=== PATIENT | male | born 1960 | race Caucasian/White ===

== ENCOUNTER 2019-03-27 16:03 | Inpatient (IN) ==
[2019-03-27] MEDS ORDERED: Ondansetron 4 MG/2 ML VIAL IVP PRN (18:20)
[2019-03-27] MEDS ORDERED: Piperacillin/Tazobactam 3.375 GM in Water for inj. (sterile) 20 ML IVP ONE (18:34)
[2019-03-27] MEDS ORDERED: *HR* Metoprolol 5 MG/5 ML VIAL IVP PRN (18:36)
[2019-03-27] MEDS ORDERED: Vancomycin 0 MG in 0.9 % Sodium Chloride 250 ML IVPB SCH (19:00)
[2019-03-27 19:37] LABS: Basophils % 0.2 %; Hematocrit 29.4 % (37.5-50.1); Immature Granulocytes % 0.4 % (0-4); Lymphocytes # 0.3 K/mcL (0.6-4.6); Mean Corpuscular Hemoglobin 27.9 pg (28.0-33.3); Mean Corpuscular Volume 82.1 fL (83.0-100.0); Mean Platelet Volume 10.4 fL (9.4-12.4); Monocytes # 0.6 K/mcL (0.0-1.3); Monocytes % 4.8 %; Neutrophils # 11.8 K/mcL (1.6-8.9); Platelet Count 279 K/mcL (140-400); Red Blood Count 3.58 M/mcL (4.19-5.50); Red Cell Distribution Width 14.8 % (11.5-14.5); Segmented Neutrophils % 92.6 %; White Blood Count 12.7 K/mcL (4.3-11.1)
[2019-03-27 19:42] LABS: INR 1.1
[2019-03-27 19:58] LABS: BUN/Creatinine Ratio 36 (6-26); Blood Urea Nitrogen 86 mg/dL (6-20); Calcium 7.9 mg/dL (8.6-10.3); Carbon Dioxide 19 mEq/L (23-29); Chloride 97 mEq/L (98-107); Glucose 220 mg/dL (70-105); Magnesium 2.6 mg/dL (1.6-2.6); Osmolality,Calculated 291 (280-300); Phosphorous 5.7 mg/dL (2.7-4.5); Potassium 6.3 mEq/L (3.5-5.1); Sodium 124 mEq/L (136-145); Troponin I < 0.03 ng/mL (< 0.04); eGFR For African Americans 34 (> 60); eGFR For Non-African Americans 28 (> 60)
[2019-03-27 19:59] LABS: Alanine Aminotransferase 21 Units/L (7-52); Albumin 3.5 g/dL (3.5-5.7); Albumin/Globulin Ratio 1.1 (1.1-2.2); Alkaline Phosphatase 102 Units/L (34-104); Aspartate Amino Transferase 36 Units/L (13-39); Bilirubin,Direct 0.1 mg/dL (0.0-0.2); Bilirubin,Indirect 0.2 mg/dL (0.0-1.0); Bilirubin,Total 0.3 mg/dL (0.3-1.0); Globulin 3.1 g/dL (2.4-3.5); Total Protein 6.6 g/dL (6.4-8.9)
[2019-03-27] MEDS ORDERED: Albuterol 2.5 MG/3 ML NEBULIZER IH ONE ×2 (20:26→20:32)
[2019-03-27] MEDS: Ipratropium/Albuterol Neb 3 ML IH SCH (20:26)
[2019-03-27] MEDS ORDERED: *HR* Dextrose 50 % in Water (Syg) 50 ML SYRINGE IVP ONE (20:27)
[2019-03-27] MEDS ORDERED: Insulin Human Regular 10 UNIT in 0.9 % Sodium Chloride 10 ML IV ONE (20:27)
[2019-03-27] MEDS ORDERED: Calcium Gluconate 1gm/50mL 1 GM/50 ML BAG IVPB ONE (20:36)
[2019-03-27 20:45] LABS: ABG Base Excess -8 mEq/L (-2 to 3); ABG HCO3 20 mEq/L (21-27); ABG Oxygen Saturation 90 % (95-98); ABG PCO2 50 mmHg (35-45); ABG PH 7.21 pH Units (7.32-7.45); ABG PO2 72 mmHg (85-104); ABG TCO2 21 mEq/L (20-26); Blood Gas VT 600 cc
[2019-03-27] MEDS ORDERED: 0.9 % Sodium Chloride Mini Bag 100 ML ONE (21:05)
[2019-03-27] MEDS: Piperacillin/Tazobactam 3.375 GM in 0.9 % Sodium Chloride Mini Bag 100 ML IVPB SCH (21:07)
[2019-03-27 21:12] LABS: Ethanol < 10 mg/dL (Less than 10)
[2019-03-27 22:13] LABS: Bilirubin,Urine Small (Negative); Blood,Urine Negative (Negative); Clarity,Urine Clear (Clear); Color,Urine Dark Yellow (Yellow); Glucose,Urine (UA) Normal (Normal); Ketones,Urine Negative (Negative); Leukocyte Esterase,Urine Negative (Negative); Nitrite,Urine Negative (Negative); Protein,Urine Trace mg/dL (Neg-Trace); Specific Gravity,Urine 1.021 (1.010-1.025); Urobilinogen,Urine Normal (Normal)
[2019-03-27 22:24] LABS: Amphetamine Screen,Urine Negative ng/mL (Cutoff=1000); Barbiturate Screen,Urine Negative ng/mL (Cutoff=200); Benzodiazepines Screen,Urine Negative ng/mL (Cutoff=200); Cannabinoid Screen,Urine Negative ng/mL (Cutoff = 50); Cocaine Screen,Urine Negative ng/mL (Cutoff= 300); Opiate Screen,Urine Positive ng/mL (Cutoff=300); Phencyclidine Screen,Urine Negative ng/mL (Cutoff=25)
[2019-03-27] MEDS: 0.9 % Sodium Chloride 1,000 ML IV SCH (22:41)
[2019-03-27 23:03] LABS: Creatine Kinase 1056 Units/L (30-223)
[2019-03-27] MEDS: Insulin LISPRO 300 UNITS/3 ML VIAL SQ SCH (23:04)
[2019-03-27] MEDS: MethylPREDNISolone 40 MG/ML VIAL IVP SCH (23:04)
[2019-03-27] MEDS: *HR* Heparin 5,000 UNIT/ML VIAL SQ SCH (23:04)
[2019-03-27 23:26] LABS: Adenovirus Not Detected (Not Detect); Bordetella Pertussis Not Detected (Not Detect); Chlamydophila pneumoniae Not Detected (Not Detect); Coronavirus 229E Not Detected (Not Detect); Coronavirus HKU1 Not Detected (Not Detect); Coronavirus NL63 Not Detected (Not Detect); Coronavirus OC43 Not Detected (Not Detect); Human Metapneumovirus Not Detected (Not Detect); Human Rhinovirus/Enterovirus Not Detected (Not Detect); Influenza A Subtype 2009 H1 Not Detected (Not Detect); Influenza A Untypeable Not Detected (Not Detect); Influenza B Not Detected (Not Detect); Mycoplasma pneumoniae Not Detected (Not Detect); Parainfluenza Virus 1 Not Detected (Not Detect); Parainfluenza Virus 2 Not Detected (Not Detect); Parainfluenza Virus 3 Not Detected (Not Detect); Parainfluenza Virus 4 Not Detected (Not Detect); Respiratory Syncytial Virus Not Detected (Not Detect)
[2019-03-28] MEDS: Ipratropium/Albuterol Neb 3 ML IH SCH ×7 (00:01→23:39)
[2019-03-28] MEDS ORDERED: Insulin DETEMIR 100 UNIT/ML X5UNITS SQ ONE (00:25)
[2019-03-28] MEDS ORDERED: Insulin LISPRO 300 UNITS/3 ML VIAL SQ ONE (00:25)
[2019-03-28 00:56] LABS: Calcium 7.8 mg/dL (8.6-10.3); Potassium 6.4 mEq/L (3.5-5.1)
[2019-03-28] MEDS: 0.9 % Sodium Chloride 1,000 ML IV SCH (03:47)
[2019-03-28] MEDS: Piperacillin/Tazobactam 3.375 GM in 0.9 % Sodium Chloride Mini Bag 100 ML IVPB SCH ×3 (04:07→20:10)
[2019-03-28 04:34] LABS: ABG Base Excess -8 mEq/L (-2 to 3); ABG HCO3 21 mEq/L (21-27); ABG Oxygen Saturation 95 % (95-98); ABG PCO2 55 mmHg (35-45); ABG PH 7.18 pH Units (7.32-7.45); ABG PO2 93 mmHg (85-104); ABG TCO2 22 mEq/L (20-26); Blood Gas VT 550 cc
[2019-03-28 05:15] LABS: Basophils % 0.1 %; Hematocrit 27.8 % (37.5-50.1); Immature Granulocytes % 0.3 % (0-4); Lymphocytes # 0.4 K/mcL (0.6-4.6); Lymphocytes % 2.8 %; Mean Corpuscular HGB Conc 32.4 g/dL (31.6-35.5); Mean Corpuscular Volume 86.6 fL (83.0-100.0); Mean Platelet Volume 10.5 fL (9.4-12.4); Monocytes # 0.5 K/mcL (0.0-1.3); Monocytes % 3.3 %; Platelet Count 235 K/mcL (140-400); Red Blood Count 3.21 M/mcL (4.19-5.50); Red Cell Distribution Width 14.9 % (11.5-14.5); Segmented Neutrophils % 93.5 %
[2019-03-28] MEDS: Insulin LISPRO 300 UNITS/3 ML VIAL SQ SCH ×4 (05:21→23:14)
[2019-03-28 05:33] LABS: Calcium 7.8 mg/dL (8.6-10.3); Potassium 6.6 mEq/L (3.5-5.1)
[2019-03-28] MEDS ORDERED: Insulin Human Regular 10 UNIT in 0.9 % Sodium Chloride 10 ML IV ONE ×3 (05:38→16:40)
[2019-03-28] MEDS ORDERED: *HR* Dextrose 50 % in Water (Syg) 50 ML SYRINGE IVP ONE ×3 (05:38→16:41)
[2019-03-28 05:39] LABS: Platelet Estimate Normal (Normal)
[2019-03-28 05:41] LABS: ABG Base Excess -7 mEq/L (-2 to 3); ABG HCO3 21 mEq/L (21-27); ABG Oxygen Saturation 94 % (95-98); ABG PCO2 52 mmHg (35-45); ABG PH 7.21 pH Units (7.32-7.45); ABG PO2 86 mmHg (85-104); ABG TCO2 22 mEq/L (20-26); Blood Gas VT 700 cc
[2019-03-28] MEDS: Naloxone 0.4 MG/ML INJ IVP PRN ×2 (05:48→05:55)
[2019-03-28] MEDS ORDERED: Dexmedetomidine HCl 400 MCG/100 ML MLS IVC ONE (06:13)
[2019-03-28] MEDS: Dexmedetomidine HCl 400 MCG/100 ML MLS IVC SCH ×5 (06:27→21:30)
[2019-03-28] MEDS ORDERED: Perflutren Lipid Microsphere 1.3 ML in 0.9 % Sodium Chloride 8.7 ML IVP ONE (08:08)
[2019-03-28] MEDS ORDERED: levoFLOXacin 750 MG/150 ML 750 MG/150 ML BAG IVPB ONE (09:00)
[2019-03-28 10:48] LABS: Calcium 7.6 mg/dL (8.6-10.3); Potassium 6.6 mEq/L (3.5-5.1)
[2019-03-28] MEDS: *HR* Heparin 5,000 UNIT/ML VIAL SQ SCH ×3 (11:10→23:14)
[2019-03-28] MEDS: MethylPREDNISolone 40 MG/ML VIAL IVP SCH (11:10)
[2019-03-28] MEDS ORDERED: Dextrose Gel 15 GM/37.5 ML TUBE PO PRN ×2 (11:11)
[2019-03-28] MEDS ORDERED: D5% in Water 1,000 ML IVC PRN (11:11)
[2019-03-28] MEDS ORDERED: *HR* Dextrose 50 % in Water (Syg) 50 ML SYRINGE IVP PRN (11:11)
[2019-03-28 11:17] LABS: ABG Base Excess -10 mEq/L (-2 to 3); ABG HCO3 17 mEq/L (21-27); ABG Oxygen Saturation 72 % (95-98); ABG PCO2 40 mmHg (35-45); ABG PH 7.24 pH Units (7.32-7.45); ABG PO2 45 mmHg (85-104); ABG TCO2 18 mEq/L (20-26); Blood Gas Modality AVAPS; Blood Gas VT 700 cc
[2019-03-28] MEDS: *HR* LORazepam 2 MG/ML VIAL IVP PRN ×2 (11:38→21:30)
[2019-03-28] MEDS ORDERED: 0.9 % Sodium Chloride 250 ML IVC PRN (12:22)
[2019-03-28] MEDS ORDERED: *HR* Heparin 10,000 UNIT/10 ML VIAL IV PRN (12:22)
[2019-03-28] MEDS ORDERED: *HR* Heparin 5,000 UNIT/ML VIAL ONE (12:26)
[2019-03-28] MEDS ORDERED: 0.9 % Sodium Chloride 1,000 ML PRIME SCH ×2 (12:30→17:30)
[2019-03-28 13:07] LABS: Hepatitis B Surface Antibody 17.15 mIU/mL
[2019-03-28 13:17] LABS: Hepatitis B Surface Antigen Nonreactive (Nonreactive)
[2019-03-28 13:18] LABS: VBG HCO3 18 mEq/L (21-27); VBG PCO2 47 mmHg (41-51); VBG PH 7.19 pH Units (7.32-7.42); VBG PO2 119 mmHg (25-50)
[2019-03-28 13:45] LABS: Hepatitis B Core IgM Nonreactive (Nonreactive)
[2019-03-28 13:49] LABS: Calcium 7.5 mg/dL (8.6-10.3); Potassium 6.7 mEq/L (3.5-5.1)
[2019-03-28] MEDS: Insulin DETEMIR 100 UNIT/ML X5UNITS SQ SCH ×2 (14:19→20:09)
[2019-03-28] MEDS: Norepinephrine 4 MG in 0.9 % Sodium Chloride 250 ML IVC SCH (16:45)
[2019-03-28] MEDS: Hydrocortisone Sodium Succ 100 MG/2 ML VIAL IVP SCH ×2 (17:01→23:14)
[2019-03-28] MEDS: Calcium Gluconate 1gm/50mL 1 GM/50 ML BAG IVPB SCH ×2 (17:02→17:46)
[2019-03-28] MEDS ORDERED: *HR* Alteplase (Cathflo) 2 MG VIAL IVP PRN (17:20)
[2019-03-28] MEDS ORDERED: 0.9 % Sodium Chloride 1,000 ML PRIME ONE ×2 (17:20)
[2019-03-28] MEDS ORDERED: *HR* Heparin 5,000 UNIT/ML VIAL IVP PRN (17:20)
[2019-03-28] MEDS: PrismaSATE BGK 4/2.5 5,000 ML CRRT SCH ×2 (21:29)
[2019-03-29] MEDS: Dexmedetomidine HCl 400 MCG/100 ML MLS IVC SCH ×6 (00:09→22:43)
[2019-03-29] MEDS: PrismaSATE BGK 4/2.5 5,000 ML CRRT SCH ×4 (02:09→05:37)
[2019-03-29] MEDS: Ipratropium/Albuterol Neb 3 ML IH SCH ×5 (03:28→19:55)
[2019-03-29 03:34] LABS: Basophils % 0.1 %; Hematocrit 26.2 % (37.5-50.1); Hemoglobin 8.9 g/dL (12.9-16.9); Immature Granulocytes % 1.7 % (0-4); Lymphocytes # 0.6 K/mcL (0.6-4.6); Lymphocytes % 5.5 %; Mean Corpuscular Hemoglobin 28.2 pg (28.0-33.3); Mean Corpuscular Volume 82.9 fL (83.0-100.0); Mean Platelet Volume 9.8 fL (9.4-12.4); Monocytes # 0.7 K/mcL (0.0-1.3); Monocytes % 6.1 %; Neutrophils # 9.3 K/mcL (1.6-8.9); Platelet Count 222 K/mcL (140-400); Red Blood Count 3.16 M/mcL (4.19-5.50); Red Cell Distribution Width 14.7 % (11.5-14.5); Segmented Neutrophils % 86.6 %; White Blood Count 10.7 K/mcL (4.3-11.1)
[2019-03-29 03:53] LABS: BUN/Creatinine Ratio 61 (6-26); Blood Urea Nitrogen 68 mg/dL (6-20); Calcium 7.7 mg/dL (8.6-10.3); Carbon Dioxide 22 mEq/L (23-29); Chloride 104 mEq/L (98-107); Glucose 220 mg/dL (70-105); Osmolality,Calculated 299 (280-300); Potassium 5.4 mEq/L (3.5-5.1); Sodium 131 mEq/L (136-145); eGFR For African Americans > 60 (> 60); eGFR For Non-African Americans > 60 (> 60)
[2019-03-29] MEDS: Piperacillin/Tazobactam 3.375 GM in 0.9 % Sodium Chloride Mini Bag 100 ML IVPB SCH ×3 (04:00→20:15)
[2019-03-29] MEDS: Insulin LISPRO 300 UNITS/3 ML VIAL SQ SCH ×4 (05:36→23:01)
[2019-03-29] MEDS: Hydrocortisone Sodium Succ 100 MG/2 ML VIAL IVP SCH (05:36)
[2019-03-29 05:54] LABS: ABG Base Excess -2 mEq/L (-2 to 3); ABG HCO3 24 mEq/L (21-27); ABG Oxygen Saturation 99 % (95-98); ABG PCO2 48 mmHg (35-45); ABG PH 7.31 pH Units (7.32-7.45); ABG PO2 140 mmHg (85-104); ABG TCO2 26 mEq/L (20-26); Blood Gas VT 700 cc
[2019-03-29] MEDS: Insulin DETEMIR 100 UNIT/ML X5UNITS SQ SCH ×2 (08:00→20:15)
[2019-03-29] MEDS: *HR* Heparin 5,000 UNIT/ML VIAL SQ SCH ×3 (08:02→23:00)
[2019-03-29 10:49] LABS: BUN/Creatinine Ratio 62 (6-26); Blood Urea Nitrogen 56 mg/dL (6-20); Calcium 7.7 mg/dL (8.6-10.3); Carbon Dioxide 24 mEq/L (23-29); Chloride 106 mEq/L (98-107); Glucose 215 mg/dL (70-105); Osmolality,Calculated 298 (280-300); Potassium 5.2 mEq/L (3.5-5.1); Sodium 133 mEq/L (136-145); eGFR For African Americans > 60 (> 60); eGFR For Non-African Americans > 60 (> 60)
[2019-03-29] MEDS ORDERED: levoFLOXacin 500 MG/100 ML 500 MG/100 ML BAG IVPB SCH (12:00)
[2019-03-29] MEDS ORDERED: *HR* Heparin 10,000 UNIT/10 ML VIAL IV PRN (12:22)
[2019-03-29] MEDS ORDERED: 0.9 % Sodium Chloride 250 ML IVC PRN (12:22)
[2019-03-29] MEDS ORDERED: 0.9 % Sodium Chloride 1,000 ML PRIME SCH (12:30)
[2019-03-29] MEDS: Norepinephrine 4 MG in 0.9 % Sodium Chloride 250 ML IVC SCH (15:36)
[2019-03-29] MEDS ORDERED: Loratadine 10 MG TABLET PO SCH (17:30)
[2019-03-29] MEDS ORDERED: Hydrocortisone Sodium Succ 100 MG/2 ML VIAL IVP SCH (18:00)
[2019-03-29] MEDS: Pregabalin 50 MG CAPSULE PO SCH ×2 (18:00→20:15)
[2019-03-29] MEDS: *HR* LORazepam 2 MG/ML VIAL IVP PRN (19:16)
[2019-03-29] MEDS ORDERED: Haloperidol Lactate 5 MG/ML VIAL IVP ONE (21:13)
[2019-03-29] MEDS ORDERED: Ziprasidone 20 MG CAPSULE PO ONE (23:45)
[2019-03-30] MEDS: Ipratropium/Albuterol Neb 3 ML IH SCH ×7 (00:04→23:40)
[2019-03-30] MEDS ORDERED: Morphine Sulfate ER (12 HR) 15 MG TABLET.ER PO ONE ×3 (02:41→16:20)
[2019-03-30] MEDS: *HR* LORazepam 2 MG/ML VIAL IVP PRN ×2 (03:18→12:22)
[2019-03-30 03:57] LABS: Basophils % 0.3 %; Hematocrit 28.4 % (37.5-50.1); Hemoglobin 9.5 g/dL (12.9-16.9); Immature Granulocytes % 2.9 % (0-4); Lymphocytes # 1.6 K/mcL (0.6-4.6); Lymphocytes % 10.6 %; Mean Corpuscular HGB Conc 33.5 g/dL (31.6-35.5); Mean Corpuscular Hemoglobin 27.9 pg (28.0-33.3); Mean Corpuscular Volume 83.3 fL (83.0-100.0); Mean Platelet Volume 9.8 fL (9.4-12.4); Monocytes % 6.6 %; Neutrophils # 12.3 K/mcL (1.6-8.9); Platelet Count 302 K/mcL (140-400); Red Blood Count 3.41 M/mcL (4.19-5.50); Red Cell Distribution Width 14.7 % (11.5-14.5); Segmented Neutrophils % 79.6 %; White Blood Count 15.5 K/mcL (4.3-11.1)
[2019-03-30] MEDS: Piperacillin/Tazobactam 3.375 GM in 0.9 % Sodium Chloride Mini Bag 100 ML IVPB SCH ×3 (04:06→20:04)
[2019-03-30 04:20] LABS: BUN/Creatinine Ratio 42 (6-26); Blood Urea Nitrogen 32 mg/dL (6-20); Calcium 8.1 mg/dL (8.6-10.3); Carbon Dioxide 25 mEq/L (23-29); Chloride 104 mEq/L (98-107); Glucose 151 mg/dL (70-105); Osmolality,Calculated 296 (280-300); Potassium 3.5 mEq/L (3.5-5.1); Sodium 138 mEq/L (136-145); eGFR For African Americans > 60 (> 60); eGFR For Non-African Americans > 60 (> 60)
[2019-03-30 04:33] LABS: ABG Base Excess 1 mEq/L (-2 to 3); ABG HCO3 25 mEq/L (21-27); ABG Oxygen Saturation 91 % (95-98); ABG PCO2 33 mmHg (35-45); ABG PH 7.48 pH Units (7.32-7.45); ABG PO2 55 mmHg (85-104); ABG TCO2 26 mEq/L (20-26); Blood Gas Modality AVAPS; Blood Gas VT 700 cc
[2019-03-30] MEDS: Insulin LISPRO 300 UNITS/3 ML VIAL SQ SCH ×3 (05:08→17:16)
[2019-03-30] MEDS ORDERED: *HR* LORazepam 1 MG TABLET PO PRN (06:38)
[2019-03-30] MEDS ORDERED: diazePAM 5 MG TABLET PO PRN (06:44)
[2019-03-30] MEDS: *HR* Heparin 5,000 UNIT/ML VIAL SQ SCH ×2 (08:03→16:14)
[2019-03-30] MEDS: predniSONE 20 MG TABLET PO SCH (08:03)
[2019-03-30] MEDS: Pregabalin 50 MG CAPSULE PO SCH ×3 (08:03→20:03)
[2019-03-30] MEDS: Insulin DETEMIR 100 UNIT/ML X5UNITS SQ SCH ×2 (09:21→20:02)
[2019-03-30 09:55] LABS: Mycoplasma pneumoniae IgG 0.48 U/L (<=0.09)
[2019-03-30] MEDS: Morphine Sulfate ER (12 HR) 60 MG TABLET.ER PO SCH ×3 (11:11→19:31)
[2019-03-30] MEDS ORDERED: cloNIDine HCl 0.1 MG TABLET PO ONE (12:50)
[2019-03-30] MEDS ORDERED: Morphine Sulfate ER (12 HR) 15 MG TABLET.ER PO SCH (14:00)
[2019-03-30] MEDS: *HR* LORazepam 1 MG TABLET PO SCH ×3 (14:04→20:03)
[2019-03-30] MEDS: Norepinephrine 4 MG in 0.9 % Sodium Chloride 250 ML IVC SCH (19:17)
[2019-03-30] MEDS: Dexmedetomidine HCl 400 MCG/100 ML MLS IVC SCH ×2 (19:27→20:55)
[2019-03-30] MEDS: Morphine Sulfate ER (12 HR) 30 MG TABLET.ER PO SCH (20:02)
[2019-03-31] MEDS: Dexmedetomidine HCl 400 MCG/100 ML MLS IVC SCH ×2 (00:06→02:40)
[2019-03-31] MEDS: Insulin LISPRO 300 UNITS/3 ML VIAL SQ SCH ×4 (00:07→16:42)
[2019-03-31] MEDS: *HR* Heparin 5,000 UNIT/ML VIAL SQ SCH ×3 (00:08→15:15)
[2019-03-31 03:29] LABS: BUN/Creatinine Ratio 28 (6-26); Blood Urea Nitrogen 17 mg/dL (6-20); Calcium 7.2 mg/dL (8.6-10.3); Carbon Dioxide 25 mEq/L (23-29); Chloride 108 mEq/L (98-107); Glucose 176 mg/dL (70-105); Osmolality,Calculated 292 (280-300); Potassium 3.6 mEq/L (3.5-5.1); Sodium 138 mEq/L (136-145); eGFR For African Americans > 60 (> 60); eGFR For Non-African Americans > 60 (> 60)
[2019-03-31] MEDS: Ipratropium/Albuterol Neb 3 ML IH SCH ×5 (03:29→19:53)
[2019-03-31 03:52] LABS: Basophils % 0.1 %; Eosinophils % 0.3 %; Hemoglobin 8.4 g/dL (12.9-16.9); Immature Granulocytes % 3.9 % (0-4); Lymphocytes # 2.1 K/mcL (0.6-4.6); Lymphocytes % 21.2 %; Mean Corpuscular HGB Conc 33.6 g/dL (31.6-35.5); Mean Corpuscular Hemoglobin 27.9 pg (28.0-33.3); Mean Corpuscular Volume 83.1 fL (83.0-100.0); Monocytes # 0.7 K/mcL (0.0-1.3); Monocytes % 7.1 %; Neutrophils # 6.7 K/mcL (1.6-8.9); Platelet Count 260 K/mcL (140-400); Red Blood Count 3.01 M/mcL (4.19-5.50); Red Cell Distribution Width 15.1 % (11.5-14.5); Segmented Neutrophils % 67.4 %; White Blood Count 9.9 K/mcL (4.3-11.1)
[2019-03-31] MEDS: Piperacillin/Tazobactam 3.375 GM in 0.9 % Sodium Chloride Mini Bag 100 ML IVPB SCH ×3 (04:16→20:53)
[2019-03-31 05:00] LABS: ABG Base Excess 5 mEq/L (-2 to 3); ABG HCO3 29 mEq/L (21-27); ABG Oxygen Saturation 94 % (95-98); ABG PCO2 38 mmHg (35-45); ABG PH 7.48 pH Units (7.32-7.45); ABG PO2 66 mmHg (85-104); ABG TCO2 30 mEq/L (20-26); Blood Gas Modality BiLevel; Blood Gas VT 700 cc
[2019-03-31] MEDS ORDERED: Furosemide 40 MG/4 ML VIAL IVP ONE (09:29)
[2019-03-31] MEDS: Insulin DETEMIR 100 UNIT/ML X5UNITS SQ SCH ×2 (09:55→20:54)
[2019-03-31] MEDS: *HR* LORazepam 1 MG TABLET PO SCH ×4 (09:56→20:51)
[2019-03-31] MEDS: Pregabalin 50 MG CAPSULE PO SCH ×3 (09:56→20:51)
[2019-03-31] MEDS: predniSONE 20 MG TABLET PO SCH (09:56)
[2019-03-31] MEDS: Morphine Sulfate ER (12 HR) 30 MG TABLET.ER PO SCH ×3 (09:56→20:51)
[2019-03-31] MEDS: Norepinephrine 4 MG in 0.9 % Sodium Chloride 250 ML IVC SCH (16:36)
[2019-03-31] MEDS: PrismaSATE BGK 4/2.5 5,000 ML CRRT SCH ×2 (16:43)
[2019-04-01] MEDS ORDERED: Acetaminophen 325 MG TABLET PO ONE (00:32)
[2019-04-01] MEDS: *HR* Heparin 5,000 UNIT/ML VIAL SQ SCH ×3 (00:44→15:12)
[2019-04-01] MEDS: Ipratropium/Albuterol Neb 3 ML IH SCH ×7 (00:44→23:31)
[2019-04-01] MEDS: Insulin LISPRO 300 UNITS/3 ML VIAL SQ SCH ×4 (00:44→20:04)
[2019-04-01 04:41] LABS: Basophils % 0.1 %; Eosinophils # 0.2 K/mcL (0.0-0.6); Eosinophils % 1.5 %; Hematocrit 25.2 % (37.5-50.1); Hemoglobin 8.1 g/dL (12.9-16.9); Immature Granulocytes % 4.9 % (0-4); Lymphocytes # 3.2 K/mcL (0.6-4.6); Lymphocytes % 23.5 %; Mean Corpuscular HGB Conc 32.1 g/dL (31.6-35.5); Mean Corpuscular Hemoglobin 27.7 pg (28.0-33.3); Mean Corpuscular Volume 86.3 fL (83.0-100.0); Mean Platelet Volume 9.3 fL (9.4-12.4); Monocytes # 0.7 K/mcL (0.0-1.3); Monocytes % 5.2 %; Neutrophils # 8.9 K/mcL (1.6-8.9); Nucleated Red Blood Cells 0.2 /100 WBC (0); Platelet Count 223 K/mcL (140-400); Red Blood Count 2.92 M/mcL (4.19-5.50); Red Cell Distribution Width 14.9 % (11.5-14.5); Segmented Neutrophils % 64.8 %; White Blood Count 13.8 K/mcL (4.3-11.1)
[2019-04-01 05:06] LABS: BUN/Creatinine Ratio 18 (6-26); Blood Urea Nitrogen 13 mg/dL (6-20); Calcium 7.1 mg/dL (8.6-10.3); Carbon Dioxide 28 mEq/L (23-29); Chloride 105 mEq/L (98-107); Glucose 118 mg/dL (70-105); Osmolality,Calculated 287 (280-300); Potassium 3.4 mEq/L (3.5-5.1); Sodium 138 mEq/L (136-145); eGFR For African Americans > 60 (> 60); eGFR For Non-African Americans > 60 (> 60)
[2019-04-01] MEDS: Piperacillin/Tazobactam 3.375 GM in 0.9 % Sodium Chloride Mini Bag 100 ML IVPB SCH (05:36)
[2019-04-01] MEDS: *HR* LORazepam 1 MG TABLET PO SCH ×4 (08:12→20:04)
[2019-04-01] MEDS: Pregabalin 50 MG CAPSULE PO SCH ×3 (08:13→20:05)
[2019-04-01] MEDS: predniSONE 20 MG TABLET PO SCH (08:13)
[2019-04-01] MEDS: Morphine Sulfate ER (12 HR) 30 MG TABLET.ER PO SCH ×3 (08:13→20:05)
[2019-04-01] MEDS: Insulin DETEMIR 100 UNIT/ML X5UNITS SQ SCH ×2 (09:52→20:12)
[2019-04-01] MEDS ORDERED: 0.9 % Sodium Chloride 1,000 ML PRIME SCH ×2 (13:35)
[2019-04-01] MEDS ORDERED: Dextrose Gel 15 GM/37.5 ML TUBE PO PRN ×2 (13:35)
[2019-04-01] MEDS ORDERED: Norepinephrine 4 MG in 0.9 % Sodium Chloride 250 ML IVC SCH (13:35)
[2019-04-01] MEDS ORDERED: *HR* LORazepam 2 MG/ML VIAL IVP PRN (13:35)
[2019-04-01] MEDS ORDERED: *HR* Alteplase (Cathflo) 2 MG VIAL IVP PRN (13:35)
[2019-04-01] MEDS ORDERED: D5% in Water 1,000 ML IVC PRN (13:35)
[2019-04-01] MEDS ORDERED: *HR* Heparin 10,000 UNIT/10 ML VIAL IV PRN (13:35)
[2019-04-01] MEDS ORDERED: Naloxone 0.4 MG/ML INJ IVP PRN (13:35)
[2019-04-01] MEDS ORDERED: Dexmedetomidine HCl 400 MCG/100 ML MLS IVC SCH (13:35)
[2019-04-01] MEDS ORDERED: *HR* Dextrose 50 % in Water (Syg) 50 ML SYRINGE IVP PRN (13:35)
[2019-04-01] MEDS ORDERED: *HR* Metoprolol 5 MG/5 ML VIAL IVP PRN (13:35)
[2019-04-01] MEDS ORDERED: *HR* Heparin 5,000 UNIT/ML VIAL IVP PRN (13:35)
[2019-04-01] MEDS ORDERED: Ondansetron 4 MG/2 ML VIAL IVP PRN (13:35)
[2019-04-01] MEDS ORDERED: 0.9 % Sodium Chloride 250 ML IVC PRN ×2 (13:35)
[2019-04-01] MEDS ORDERED: Aminoglycoside Consult 1 EACH MC ONE (14:36)
[2019-04-01] MEDS ORDERED: Insulin LISPRO 300 UNITS/3 ML VIAL SQ SCH (18:00)
[2019-04-01] MEDS: Doxycycline 100 MG CAPSULE PO SCH (20:05)
[2019-04-01] MEDS ORDERED: Doxycycline 100 MG CAPSULE PO SCH (21:00)
[2019-04-02] MEDS: *HR* Heparin 5,000 UNIT/ML VIAL SQ SCH ×3 (00:23→17:02)
[2019-04-02] MEDS: Ipratropium/Albuterol Neb 3 ML IH SCH ×6 (04:00→23:39)
[2019-04-02 04:28] LABS: Eosinophils # 0.3 K/mcL (0.0-0.6); Hematocrit 25.9 % (37.5-50.1); Hemoglobin 8.5 g/dL (12.9-16.9); Mean Corpuscular HGB Conc 32.8 g/dL (31.6-35.5); Mean Corpuscular Hemoglobin 27.8 pg (28.0-33.3); Mean Corpuscular Volume 84.6 fL (83.0-100.0); Mean Platelet Volume 9.3 fL (9.4-12.4); Nucleated Red Blood Cells 0.2 /100 WBC (0); Platelet Count 232 K/mcL (140-400); Red Blood Count 3.06 M/mcL (4.19-5.50); Red Cell Distribution Width 14.7 % (11.5-14.5); White Blood Count 14.1 K/mcL (4.3-11.1)
[2019-04-02 04:44] LABS: BUN/Creatinine Ratio 16 (6-26); Blood Urea Nitrogen 10 mg/dL (6-20); Calcium 6.9 mg/dL (8.6-10.3); Carbon Dioxide 26 mEq/L (23-29); Chloride 104 mEq/L (98-107); Glucose 155 mg/dL (70-105); Lymphocytes # 3.4 K/mcL (0.6-4.6); Monocytes # 0.3 K/mcL (0.0-1.3); Neutrophils # 9.3 K/mcL (1.6-8.9); Osmolality,Calculated 284 (280-300); Platelet Estimate Normal (Normal); Potassium 3.6 mEq/L (3.5-5.1); Sodium 136 mEq/L (136-145); eGFR For African Americans > 60 (> 60); eGFR For Non-African Americans > 60 (> 60)
[2019-04-02] MEDS: Calcium Gluconate 1gm/50mL 1 GM/50 ML BAG IVPB SCH ×2 (08:03→08:32)
[2019-04-02] MEDS: Morphine Sulfate ER (12 HR) 30 MG TABLET.ER PO SCH ×3 (08:04→22:33)
[2019-04-02] MEDS: *HR* LORazepam 1 MG TABLET PO SCH ×4 (08:05→21:53)
[2019-04-02] MEDS: Doxycycline 100 MG CAPSULE PO SCH ×2 (08:05→21:53)
[2019-04-02] MEDS: predniSONE 20 MG TABLET PO SCH (08:05)
[2019-04-02] MEDS: Pregabalin 50 MG CAPSULE PO SCH ×3 (08:05→21:53)
[2019-04-02] MEDS: Insulin LISPRO 300 UNITS/3 ML VIAL SQ SCH ×4 (08:38→21:59)
[2019-04-02] MEDS: Insulin DETEMIR 100 UNIT/ML X5UNITS SQ SCH ×2 (09:47→22:34)
[2019-04-02] MEDS: PrismaSATE BGK 4/2.5 5,000 ML CRRT SCH ×4 (11:53→16:51)
[2019-04-03] MEDS: *HR* Heparin 5,000 UNIT/ML VIAL SQ SCH ×4 (00:17→23:21)
[2019-04-03] MEDS: Ipratropium/Albuterol Neb 3 ML IH SCH ×6 (03:57→23:06)
[2019-04-03] MEDS ORDERED: Calcium Gluconate 1gm/50mL 1 GM/50 ML BAG IVPB ONE (07:34)
[2019-04-03] MEDS: Insulin LISPRO 300 UNITS/3 ML VIAL SQ SCH ×4 (08:57→20:59)
[2019-04-03] MEDS: *HR* LORazepam 1 MG TABLET PO SCH ×4 (08:58→23:21)
[2019-04-03] MEDS: predniSONE 20 MG TABLET PO SCH (08:58)
[2019-04-03] MEDS: Morphine Sulfate ER (12 HR) 30 MG TABLET.ER PO SCH ×3 (08:58→20:57)
[2019-04-03] MEDS: Pregabalin 50 MG CAPSULE PO SCH ×3 (08:58→20:56)
[2019-04-03] MEDS: Doxycycline 100 MG CAPSULE PO SCH ×2 (08:59→20:57)
[2019-04-03] MEDS: Insulin DETEMIR 100 UNIT/ML X5UNITS SQ SCH ×2 (09:12→20:58)
[2019-04-03 13:13] LABS: Hematocrit 27.3 % (37.5-50.1); Hemoglobin 9.1 g/dL (12.9-16.9); Mean Corpuscular HGB Conc 33.3 g/dL (31.6-35.5); Mean Platelet Volume 9.7 fL (9.4-12.4); Nucleated Red Blood Cells 0.2 /100 WBC (0); Platelet Count 233 K/mcL (140-400); Red Blood Count 3.25 M/mcL (4.19-5.50); Red Cell Distribution Width 14.6 % (11.5-14.5); White Blood Count 12.7 K/mcL (4.3-11.1)
[2019-04-03 13:28] LABS: BUN/Creatinine Ratio 18 (6-26); Blood Urea Nitrogen 12 mg/dL (6-20); Calcium 8.1 mg/dL (8.6-10.3); Carbon Dioxide 25 mEq/L (23-29); Chloride 102 mEq/L (98-107); Glucose 208 mg/dL (70-105); Osmolality,Calculated 286 (280-300); Potassium 4.2 mEq/L (3.5-5.1); Sodium 135 mEq/L (136-145); eGFR For African Americans > 60 (> 60); eGFR For Non-African Americans > 60 (> 60)
[2019-04-03 13:52] LABS: Eosinophils # 0.3 K/mcL (0.0-0.6); Platelet Estimate Normal (Normal)
[2019-04-03 13:54] LABS: Lymphocytes # 1.1 K/mcL (0.6-4.6); Monocytes # 0.1 K/mcL (0.0-1.3); Neutrophils # 10.9 K/mcL (1.6-8.9)
[2019-04-03] MEDS ORDERED: E-Z-HD (BARIUM SULF) SUSPENSION PO ONE (14:56)
[2019-04-03] MEDS ORDERED: E-Z-PAQUE (BARIUM SULF) SUSP 1 BOTTLE PO ONE (14:56)
[2019-04-03] MEDS: PrismaSATE BGK 4/2.5 5,000 ML CRRT SCH ×2 (14:59→15:00)
[2019-04-04] MEDS: Ipratropium/Albuterol Neb 3 ML IH SCH ×3 (03:19→11:10)
[2019-04-04 07:06] VITALS: BP 145/84
[2019-04-04 07:20] LABS: VBG HCO3 26 mEq/L (21-27); VBG PCO2 40 mmHg (41-51); VBG PH 7.42 pH Units (7.32-7.42); VBG PO2 166 mmHg (25-50)
[2019-04-04 07:29] LABS: VBG Ionized Calcium 1.09 mmol/L (1.15-1.35)
[2019-04-04] MEDS: *HR* Heparin 5,000 UNIT/ML VIAL SQ SCH (08:05)
[2019-04-04] MEDS: Pregabalin 50 MG CAPSULE PO SCH (08:06)
[2019-04-04] MEDS: Doxycycline 100 MG CAPSULE PO SCH (08:06)
[2019-04-04] MEDS: *HR* LORazepam 1 MG TABLET PO SCH ×2 (08:07→13:34)
[2019-04-04] MEDS: predniSONE 20 MG TABLET PO SCH (08:07)
[2019-04-04] MEDS: Morphine Sulfate ER (12 HR) 30 MG TABLET.ER PO SCH (08:07)
[2019-04-04] MEDS: Insulin LISPRO 300 UNITS/3 ML VIAL SQ SCH ×2 (08:18→11:42)
[2019-04-04] MEDS: Insulin DETEMIR 100 UNIT/ML X5UNITS SQ SCH (11:43)
[2019-04-04] MEDS ORDERED: FLU Vac QV 19-20 (6Month+)/PF 0.5 ML SYRINGE IM ONE (12:53)
== END 2019-04-04 14:37 | DRG 720 ==
LOC: 2NNU 17:47 → ICNU 20:07 → 2NENU 04-02 18:46
PROVIDERS: ADMIT Student in an Organized Health Care Education/Training Program; ATTEND Student in an Organized Health Care Education/Training Program

== ENCOUNTER 2021-05-14 15:05 | Inpatient (IN) ==
[2021-05-14] MEDS ORDERED: Naloxone 0.4 MG/ML INJ IVP PRN (18:51)
[2021-05-14 20:38] LABS: Basophils % 0.2 %; Eosinophils # 0.1 K/mcL (0.0-0.6); Hematocrit 25.9 % (37.5-50.1); Immature Granulocytes % 0.7 % (0-4); Lymphocytes % 15.7 %; Mean Corpuscular HGB Conc 30.9 g/dL (31.6-35.5); Mean Corpuscular Hemoglobin 26.1 pg (28.0-33.3); Mean Corpuscular Volume 84.6 fL (83.0-100.0); Monocytes # 1.7 K/mcL (0.0-1.3); Monocytes % 13.8 %; Neutrophils # 8.6 K/mcL (1.6-8.9); Platelet Count 251 K/mcL (140-400); Red Blood Count 3.06 M/mcL (4.19-5.50); Red Cell Distribution Width 16.5 % (11.5-14.5); Segmented Neutrophils % 68.6 %; White Blood Count 12.5 K/mcL (4.3-11.1)
[2021-05-14] MEDS ORDERED: Dextrose Gel 15 GM/37.5 ML TUBE PO PRN ×2 (20:39)
[2021-05-14] MEDS ORDERED: *HR* Dextrose 50 % in Water (Syg) 50 ML SYRINGE IVP PRN (20:39)
[2021-05-14] MEDS ORDERED: D5% in Water 1,000 ML IVC PRN (20:39)
[2021-05-14 20:57] LABS: BUN/Creatinine Ratio 38 (6-26); Blood Urea Nitrogen 40 mg/dL (8-23); Calcium 7.9 mg/dL (8.6-10.3); Carbon Dioxide 22 mEq/L (23-29); Chloride 104 mEq/L (98-107); Glucose 101 mg/dL (70-105); Osmolality,Calculated 284 (280-300); Sodium 132 mEq/L (136-145); eGFR For African Americans > 60 (> 60); eGFR For Non-African Americans > 60 (> 60)
[2021-05-14 21:01] LABS: Troponin I 0.19 ng/mL (< 0.04)
[2021-05-14] MEDS ORDERED: Perflutren Lipid Microsphere 1.3 ML in 0.9 % Sodium Chloride 8.7 ML IVP PRN (21:02)
[2021-05-14] MEDS: Insulin LISPRO 300 UNITS/3 ML VIAL SUBQ SCH (21:08)
[2021-05-14] MEDS ORDERED: 0.9 % Sodium Chloride 1,000 ML IVC SCH (21:15)
[2021-05-15] MEDS: MORPHINE SULFATE 100 MG PO SCH ×2 (05:42→16:59)
[2021-05-15 07:16] LABS: Estimated Average Glucose 117 mg/dl; Hemoglobin A1C 5.7 %
[2021-05-15] MEDS: Insulin LISPRO 300 UNITS/3 ML VIAL SUBQ SCH ×3 (08:47→17:00)
[2021-05-15] MEDS ORDERED: Vancomycin (wt based) 1,000 MG VIAL IV SCH (09:00)
[2021-05-15] MEDS: Aspirin 81 MG TAB.CHEW PO SCH (10:03)
[2021-05-15] MEDS: DilTIAZem CD (24hr) 240 MG CAP.ER.24H PO SCH (10:04)
[2021-05-15] MEDS: Fluticasone Propionate Nasal 50 MCG/SPRAY BOTTLE NS SCH (10:05)
[2021-05-15] MEDS: Piperacillin/Tazobactam 3.375 GM in 0.9 % Sodium Chloride Mini Bag 100 ML IVPB SCH ×4 (10:05→20:03)
[2021-05-15] MEDS: Vancomycin 2,000 MG/520 ML IV.SOLN IVPB ONE ×2 (10:07→10:32)
[2021-05-15 10:46] LABS: Basophils % 0.3 %; Eosinophils # 0.2 K/mcL (0.0-0.6); Eosinophils % 1.5 %; Hematocrit 28.3 % (37.5-50.1); Hemoglobin 8.6 g/dL (12.9-16.9); Immature Granulocytes % 0.9 % (0-4); Lymphocytes # 1.6 K/mcL (0.6-4.6); Lymphocytes % 14.1 %; Mean Corpuscular HGB Conc 30.4 g/dL (31.6-35.5); Mean Corpuscular Hemoglobin 25.7 pg (28.0-33.3); Mean Corpuscular Volume 84.7 fL (83.0-100.0); Mean Platelet Volume 10.4 fL (9.4-12.4); Monocytes # 1.3 K/mcL (0.0-1.3); Monocytes % 11.3 %; Neutrophils # 7.9 K/mcL (1.6-8.9); Platelet Count 296 K/mcL (140-400); Red Blood Count 3.34 M/mcL (4.19-5.50); Red Cell Distribution Width 16.3 % (11.5-14.5); Segmented Neutrophils % 71.9 %
[2021-05-15 11:12] LABS: BUN/Creatinine Ratio 38 (6-26); Blood Urea Nitrogen 30 mg/dL (8-23); Calcium 8.4 mg/dL (8.6-10.3); Carbon Dioxide 22 mEq/L (23-29); Chloride 104 mEq/L (98-107); Glucose 154 mg/dL (70-105); Osmolality,Calculated 285 (280-300); Potassium 5.2 mEq/L (3.5-5.1); Sodium 133 mEq/L (136-145); eGFR For African Americans > 60 (> 60); eGFR For Non-African Americans > 60 (> 60)
[2021-05-15 11:16] LABS: Troponin I 0.11 ng/mL (< 0.04)
[2021-05-15] MEDS: *HR* LORazepam 1 MG TABLET PO PRN ×2 (11:26→19:07)
[2021-05-15] MEDS ORDERED: polyethylene glycoL 3350 17 GM POWD.PACK PO PRN (12:09)
[2021-05-15] MEDS: *HR* HYDROcodone/Acet 5/325 mg TABLET PO PRN ×2 (12:33→20:20)
[2021-05-15] MEDS: Furosemide 20 MG/2 ML VIAL IVP SCH (12:34)
[2021-05-15 14:02] LABS: ABG Base Excess -2 mEq/L (-2 to 3); ABG HCO3 22 mEq/L (21-27); ABG Oxygen Saturation 93 % (95-98); ABG PCO2 36 mmHg (35-45); ABG PO2 65 mmHg (85-104); ABG TCO2 24 mEq/L (20-26)
[2021-05-15] MEDS: SODIUM ZIRCONIUM CYCLOSILICATE 5 GM POWD.PACK PO SCH (15:45)
[2021-05-15 17:50] LABS: % Iron Saturation 6 % (20-55); Iron 22 mcg/dL (65-175); Transferrin 260 mg/dL (203-362)
[2021-05-15] MEDS: Sennosides/Docusate Sodium TABLET PO SCH (20:01)
[2021-05-16] MEDS: Piperacillin/Tazobactam 3.375 GM in 0.9 % Sodium Chloride Mini Bag 100 ML IVPB SCH ×2 (03:11→11:06)
[2021-05-16] MEDS: *HR* LORazepam 1 MG TABLET PO PRN ×3 (03:55→20:15)
[2021-05-16 04:56] LABS: Basophils % 0.4 %; Eosinophils # 0.4 K/mcL (0.0-0.6); Eosinophils % 4.2 %; Hematocrit 27.6 % (37.5-50.1); Hemoglobin 8.8 g/dL (12.9-16.9); Immature Granulocytes % 0.6 % (0-4); Lymphocytes # 1.6 K/mcL (0.6-4.6); Lymphocytes % 17.9 %; Mean Corpuscular HGB Conc 31.9 g/dL (31.6-35.5); Mean Corpuscular Hemoglobin 26.8 pg (28.0-33.3); Mean Corpuscular Volume 84.1 fL (83.0-100.0); Monocytes # 0.8 K/mcL (0.0-1.3); Platelet Count 287 K/mcL (140-400); Red Blood Count 3.28 M/mcL (4.19-5.50); Segmented Neutrophils % 67.9 %; White Blood Count 8.9 K/mcL (4.3-11.1)
[2021-05-16] MEDS: MORPHINE SULFATE 100 MG PO SCH ×2 (05:02→17:10)
[2021-05-16 05:03] LABS: BUN/Creatinine Ratio 25 (6-26); Blood Urea Nitrogen 17 mg/dL (8-23); Calcium 8.3 mg/dL (8.6-10.3); Carbon Dioxide 25 mEq/L (23-29); Chloride 103 mEq/L (98-107); Glucose 156 mg/dL (70-105); Osmolality,Calculated 281 (280-300); Potassium 4.5 mEq/L (3.5-5.1); Sodium 133 mEq/L (136-145); eGFR For African Americans > 60 (> 60); eGFR For Non-African Americans > 60 (> 60)
[2021-05-16] MEDS: DilTIAZem CD (24hr) 240 MG CAP.ER.24H PO SCH (08:03)
[2021-05-16] MEDS: Aspirin 81 MG TAB.CHEW PO SCH (08:03)
[2021-05-16] MEDS: Cyanocobalamin (B-12) 1,000 MCG TABLET PO SCH (08:04)
[2021-05-16] MEDS: Furosemide 20 MG/2 ML VIAL IVP SCH (08:04)
[2021-05-16] MEDS: Sennosides/Docusate Sodium TABLET PO SCH ×2 (08:04→20:15)
[2021-05-16] MEDS: *HR* HYDROcodone/Acet 5/325 mg TABLET PO PRN ×2 (08:04→16:14)
[2021-05-16] MEDS: Fluticasone Propionate Nasal 50 MCG/SPRAY BOTTLE NS SCH (08:05)
[2021-05-16] MEDS: Insulin LISPRO 300 UNITS/3 ML VIAL SUBQ SCH ×3 (08:06→17:11)
[2021-05-16] MEDS: SODIUM ZIRCONIUM CYCLOSILICATE 5 GM POWD.PACK PO SCH (10:53)
[2021-05-16] MEDS: Ondansetron 4 MG/2 ML VIAL IVP PRN ×2 (10:54→18:56)
[2021-05-16] MEDS ORDERED: Vancomycin 2,000 MG/520 ML IV.SOLN IVPB SCH (11:00)
[2021-05-16 14:23] LABS: Bilirubin,Urine Negative (Negative); Blood,Urine Negative (Negative); Clarity,Urine Clear (Clear); Color,Urine Light-Yellow (Yellow); Glucose,Urine (UA) Normal (Normal); Ketones,Urine Negative (Negative); Leukocyte Esterase,Urine Negative (Negative); Nitrite,Urine Negative (Negative); Protein,Urine 50 mg/dL (Neg-Trace); RBC,Urine 0-3 per hpf (0-3); Specific Gravity,Urine 1.011 (1.010-1.025); Squamous Epithelial Cell,Urine Few per hpf (None-Few); Urobilinogen,Urine Normal (Normal); WBC,Urine 0-3 per hpf (0-3)
[2021-05-16 14:42] LABS: Amphetamine Screen,Urine Negative ng/mL (Cutoff=1000); Barbiturate Screen,Urine Negative ng/mL (Cutoff=200); Benzodiazepines Screen,Urine Negative ng/mL (Cutoff=200); Cannabinoid Screen,Urine Negative ng/mL (Cutoff = 50); Cocaine Screen,Urine Negative ng/mL (Cutoff= 300); Opiate Screen,Urine Positive ng/mL (Cutoff=300); Phencyclidine Screen,Urine Negative ng/mL (Cutoff=25)
[2021-05-16] MEDS: Acetaminophen 325 MG TABLET PO PRN (15:20)
[2021-05-17] MEDS: *HR* HYDROcodone/Acet 5/325 mg TABLET PO PRN ×3 (00:03→16:41)
[2021-05-17 02:18] LABS: Basophils % 0.4 %; Eosinophils # 0.2 K/mcL (0.0-0.6); Hematocrit 27.1 % (37.5-50.1); Hemoglobin 8.6 g/dL (12.9-16.9); Immature Granulocytes % 0.7 % (0-4); Lymphocytes # 1.4 K/mcL (0.6-4.6); Lymphocytes % 19.2 %; Mean Corpuscular HGB Conc 31.7 g/dL (31.6-35.5); Mean Corpuscular Hemoglobin 26.1 pg (28.0-33.3); Mean Corpuscular Volume 82.4 fL (83.0-100.0); Mean Platelet Volume 9.8 fL (9.4-12.4); Monocytes # 0.7 K/mcL (0.0-1.3); Monocytes % 9.2 %; Platelet Count 301 K/mcL (140-400); Red Blood Count 3.29 M/mcL (4.19-5.50); Red Cell Distribution Width 15.8 % (11.5-14.5); Segmented Neutrophils % 67.5 %; White Blood Count 7.4 K/mcL (4.3-11.1)
[2021-05-17 02:39] LABS: BUN/Creatinine Ratio 20 (6-26); Blood Urea Nitrogen 13 mg/dL (8-23); Calcium 8.4 mg/dL (8.6-10.3); Carbon Dioxide 21 mEq/L (23-29); Chloride 104 mEq/L (98-107); Glucose 176 mg/dL (70-105); Osmolality,Calculated 284 (280-300); Potassium 4.3 mEq/L (3.5-5.1); Sodium 135 mEq/L (136-145); eGFR For African Americans > 60 (> 60); eGFR For Non-African Americans > 60 (> 60)
[2021-05-17] MEDS: MORPHINE SULFATE 100 MG PO SCH ×2 (06:23→18:23)
[2021-05-17] MEDS: Doxycycline 100 MG CAPSULE PO SCH ×2 (08:31→20:16)
[2021-05-17] MEDS: *HR* LORazepam 1 MG TABLET PO PRN ×2 (08:31→18:25)
[2021-05-17] MEDS: Aspirin 81 MG TAB.CHEW PO SCH (08:31)
[2021-05-17] MEDS: Sennosides/Docusate Sodium TABLET PO SCH ×2 (08:32→20:16)
[2021-05-17] MEDS: Cyanocobalamin (B-12) 1,000 MCG TABLET PO SCH (08:32)
[2021-05-17] MEDS: DilTIAZem CD (24hr) 240 MG CAP.ER.24H PO SCH (08:33)
[2021-05-17] MEDS: SODIUM ZIRCONIUM CYCLOSILICATE 5 GM POWD.PACK PO SCH (08:33)
[2021-05-17] MEDS: Fluticasone Propionate Nasal 50 MCG/SPRAY BOTTLE NS SCH (08:33)
[2021-05-17] MEDS: Insulin LISPRO 300 UNITS/3 ML VIAL SUBQ SCH ×3 (08:34→16:41)
[2021-05-17] MEDS ORDERED: Furosemide 20 MG/2 ML VIAL IVP SCH (09:00)
[2021-05-17] MEDS ORDERED: Methyl Salicylate/Menthol 57 APPL/57 GM TUBE TP PRN (11:11)
[2021-05-17] MEDS ORDERED: Perflutren Lipid Microsphere 1.3 ML in 0.9 % Sodium Chloride 8.7 ML IVP PRN (12:13)
[2021-05-17] MEDS: Amoxicillin 500 MG CAPSULE PO SCH ×3 (12:24→20:15)
[2021-05-17] MEDS ORDERED: Methyl Salicylate/Menthol 85 APPL/85 GM TUBE TP PRN (13:15)
[2021-05-17] MEDS: Acetaminophen 325 MG TABLET PO PRN (18:25)
[2021-05-17] MEDS: Furosemide 40 MG/4 ML VIAL IVP SCH (20:16)
[2021-05-17] MEDS: Melatonin 3 MG TABLET PO PRN (20:17)
[2021-05-18] MEDS: MORPHINE SULFATE 100 MG PO SCH ×2 (05:10→18:29)
[2021-05-18 05:15] LABS: Basophils % 0.5 %; Eosinophils # 0.3 K/mcL (0.0-0.6); Eosinophils % 3.3 %; Hematocrit 26.9 % (37.5-50.1); Hemoglobin 8.5 g/dL (12.9-16.9); Immature Granulocytes % 0.6 % (0-4); Lymphocytes # 2.1 K/mcL (0.6-4.6); Lymphocytes % 24.8 %; Mean Corpuscular HGB Conc 31.6 g/dL (31.6-35.5); Mean Corpuscular Hemoglobin 26.1 pg (28.0-33.3); Mean Corpuscular Volume 82.5 fL (83.0-100.0); Mean Platelet Volume 9.7 fL (9.4-12.4); Monocytes # 0.7 K/mcL (0.0-1.3); Monocytes % 8.8 %; Neutrophils # 5.1 K/mcL (1.6-8.9); Platelet Count 338 K/mcL (140-400); Red Blood Count 3.26 M/mcL (4.19-5.50); Red Cell Distribution Width 15.8 % (11.5-14.5); White Blood Count 8.3 K/mcL (4.3-11.1)
[2021-05-18 05:29] LABS: BUN/Creatinine Ratio 15 (6-26); Blood Urea Nitrogen 9 mg/dL (8-23); Calcium 8.5 mg/dL (8.6-10.3); Carbon Dioxide 24 mEq/L (23-29); Chloride 103 mEq/L (98-107); Glucose 147 mg/dL (70-105); Osmolality,Calculated 285 (280-300); Potassium 3.8 mEq/L (3.5-5.1); Sodium 137 mEq/L (136-145); eGFR For African Americans > 60 (> 60); eGFR For Non-African Americans > 60 (> 60)
[2021-05-18] MEDS: *HR* LORazepam 1 MG TABLET PO PRN (06:41)
[2021-05-18] MEDS: Acetaminophen 325 MG TABLET PO PRN ×3 (06:42→20:16)
[2021-05-18] MEDS: Furosemide 40 MG/4 ML VIAL IVP SCH ×2 (08:06→19:50)
[2021-05-18] MEDS: DilTIAZem CD (24hr) 240 MG CAP.ER.24H PO SCH (08:06)
[2021-05-18] MEDS: Cyanocobalamin (B-12) 1,000 MCG TABLET PO SCH (08:06)
[2021-05-18] MEDS: Sennosides/Docusate Sodium TABLET PO SCH ×2 (08:06→19:51)
[2021-05-18] MEDS: Doxycycline 100 MG CAPSULE PO SCH ×2 (08:06→19:51)
[2021-05-18] MEDS: *HR* HYDROcodone/Acet 5/325 mg TABLET PO PRN ×2 (08:06→17:02)
[2021-05-18] MEDS: Amoxicillin 500 MG CAPSULE PO SCH ×3 (08:06→19:51)
[2021-05-18] MEDS: Fluticasone Propionate Nasal 50 MCG/SPRAY BOTTLE NS SCH (08:07)
[2021-05-18] MEDS: SODIUM ZIRCONIUM CYCLOSILICATE 5 GM POWD.PACK PO SCH (08:07)
[2021-05-18] MEDS: Aspirin 81 MG TAB.CHEW PO SCH (08:23)
[2021-05-18] MEDS: Insulin LISPRO 300 UNITS/3 ML VIAL SUBQ SCH ×3 (08:42→16:53)
[2021-05-18] MEDS ORDERED: lisinopriL 10 MG TABLET PO SCH (11:15)
[2021-05-18] MEDS: *HR* LORazepam 1 MG TABLET PO SCH ×3 (14:13→19:51)
[2021-05-18] MEDS: Melatonin 3 MG TABLET PO PRN (19:51)
[2021-05-18] MEDS: Ondansetron 4 MG/2 ML VIAL IVP PRN (20:50)
[2021-05-19] MEDS: Acetaminophen 325 MG TABLET PO PRN (03:02)
[2021-05-19] MEDS: *HR* HYDROcodone/Acet 5/325 mg TABLET PO PRN ×2 (03:02→13:41)
[2021-05-19 03:15] VITALS: O2SAT 96
[2021-05-19 05:17] LABS: Basophils % 0.5 %; Eosinophils # 0.3 K/mcL (0.0-0.6); Eosinophils % 3.7 %; Hemoglobin 8.6 g/dL (12.9-16.9); Immature Granulocytes % 1.1 % (0-4); Mean Corpuscular HGB Conc 31.9 g/dL (31.6-35.5); Mean Corpuscular Hemoglobin 26.2 pg (28.0-33.3); Mean Corpuscular Volume 82.3 fL (83.0-100.0); Mean Platelet Volume 9.4 fL (9.4-12.4); Monocytes # 0.6 K/mcL (0.0-1.3); Monocytes % 7.3 %; Neutrophils # 5.6 K/mcL (1.6-8.9); Platelet Count 327 K/mcL (140-400); Red Blood Count 3.28 M/mcL (4.19-5.50); Red Cell Distribution Width 15.8 % (11.5-14.5); Segmented Neutrophils % 64.4 %; White Blood Count 8.7 K/mcL (4.3-11.1)
[2021-05-19] MEDS: MORPHINE SULFATE 100 MG PO SCH ×2 (05:26→18:17)
[2021-05-19 05:35] LABS: BUN/Creatinine Ratio 19 (6-26); Blood Urea Nitrogen 14 mg/dL (8-23); Calcium 8.7 mg/dL (8.6-10.3); Carbon Dioxide 25 mEq/L (23-29); Chloride 102 mEq/L (98-107); Glucose 188 mg/dL (70-105); Osmolality,Calculated 287 (280-300); Potassium 3.9 mEq/L (3.5-5.1); Sodium 136 mEq/L (136-145); eGFR For African Americans > 60 (> 60); eGFR For Non-African Americans > 60 (> 60)
[2021-05-19] MEDS ORDERED: lisinopriL 5 MG TABLET PO SCH (09:00)
[2021-05-19] MEDS: DilTIAZem CD (24hr) 240 MG CAP.ER.24H PO SCH (09:03)
[2021-05-19] MEDS: *HR* LORazepam 1 MG TABLET PO SCH ×4 (09:03→20:51)
[2021-05-19] MEDS: Aspirin 81 MG TAB.CHEW PO SCH (09:03)
[2021-05-19] MEDS: Amoxicillin 500 MG CAPSULE PO SCH ×2 (09:03→13:41)
[2021-05-19] MEDS: Doxycycline 100 MG CAPSULE PO SCH ×2 (09:04→20:51)
[2021-05-19] MEDS: Sennosides/Docusate Sodium TABLET PO SCH ×2 (09:05→20:51)
[2021-05-19] MEDS: Cyanocobalamin (B-12) 1,000 MCG TABLET PO SCH (09:05)
[2021-05-19] MEDS: Ondansetron 4 MG/2 ML VIAL IVP PRN (09:05)
[2021-05-19] MEDS: Insulin LISPRO 300 UNITS/3 ML VIAL SUBQ SCH ×3 (11:01→16:58)
[2021-05-19] MEDS: Furosemide 40 MG/4 ML VIAL IVP SCH ×2 (11:04→20:50)
[2021-05-19] MEDS: Fluticasone Propionate Nasal 50 MCG/SPRAY BOTTLE NS SCH (11:05)
[2021-05-19 15:36] LABS: Adenovirus Not Detected (Not Detect); Bordetella Pertussis Not Detected (Not Detect); Chlamydophila pneumoniae Not Detected (Not Detect); Coronavirus 229E Not Detected (Not Detect); Coronavirus HKU1 Not Detected (Not Detect); Coronavirus NL63 Not Detected (Not Detect); Coronavirus OC43 Not Detected (Not Detect); Human Metapneumovirus Not Detected (Not Detect); Human Rhinovirus/Enterovirus DETECTED (Not Detect); Influenza A Subtype 2009 H1 Not Detected (Not Detect); Influenza B Not Detected (Not Detect); Mycoplasma pneumoniae Not Detected (Not Detect); Parainfluenza Virus 1 Not Detected (Not Detect); Parainfluenza Virus 2 Not Detected (Not Detect); Parainfluenza Virus 3 Not Detected (Not Detect); Parainfluenza Virus 4 Not Detected (Not Detect); Respiratory Syncytial Virus Not Detected (Not Detect); SARS-CoV-2 Not Detected (Not Detect)
[2021-05-19] MEDS: cephALEXin 500 MG CAPSULE PO SCH ×2 (16:57→20:50)
[2021-05-19] MEDS ORDERED: Furosemide 40 MG TABLET PO SCH (17:00)
[2021-05-19 19:39] VITALS: BP 158/80; PULSE 80; TEMP 98.4
[2021-05-20] MEDS ORDERED: lisinopriL 5 MG TABLET PO SCH (09:00)
== END 2021-05-19 21:15 | DRG 194 ==
LOC: 2ANU → SUATTDRO 18:19
PROVIDERS: ADMIT Internal Medicine; ATTEND General Practice